=== PATIENT | female | born 1945 | race Caucasian/White ===

== ENCOUNTER 2018-12-28 10:39 | Outpatient (REF) | payer MEDICARE, SELFPAY ==
[2018-12-28 13:52] LABS: HCT 41.3 % (36.0-46.0); HGB 14.5 g/dL (12.0-15.5); Mean Corp. HGB Concentration 35.1 g/dL (32.0-36.0); Mean Corpuscular Hemoglobin 35.9 pg (27.0-33.0); Mean Corpuscular Volume 102.2 fL (80-95); Mean Platelet Volume 10.1 fL (8.0-11.0); Platelet Count 176 x1000/uL (130-400); RBC 4.04 m/cumm (4.00-5.20); RBC Distribution Width 12.3 % (11.7-14.6); White Blood Cell Count 3.83 k/cumm (4.4-10.8)
[2018-12-29 12:33] LABS: Lyme Ab w Rflx to Lyme Confirm Negative
[2018-12-30 21:52] LABS: Anaplasma phagocytophilum Negative (Negative); B. miyamotoi PCR Negative (Negative); Babesia divergens/MO-1 Negative (Negative); Babesia duncani Negative (Negative); Babesia microti Negative (Negative); Ehrlichia chaffeensis Negative (Negative); Ehrlichia ewingii/canis Negative (Negative); Ehrlichia muris eauclairensis Negative (Negative)
== END 2018-12-28 10:59 ==
LOC: NCHCN 10:39
PROVIDERS: PCP Nurse Practitioner Family; Visit Provider Family Medicine
DX: R50.9 Fever, unspecified (principal); W57.XXXA Bitten or stung by nonvenomous insect and other nonvenomous arthropods, initial encounter; T14.8XXA Other injury of unspecified body region, initial encounter
CPT/HCPCS: 85027; 87798; 86618

== ENCOUNTER 2019-02-01 09:08 | Outpatient (REF) | payer MEDICARE, SELFPAY ==
[2019-02-01 14:47] LABS: HCT 39.8 % (36.0-46.0); HGB 13.5 g/dL (12.0-15.5); Mean Corp. HGB Concentration 33.9 g/dL (32.0-36.0); Mean Corpuscular Hemoglobin 35.7 pg (27.0-33.0); Mean Corpuscular Volume 105.3 fL (80-95); Mean Platelet Volume 9.5 fL (8.0-11.0); Platelet Count 406 x1000/uL (130-400); RBC 3.78 m/cumm (4.00-5.20); RBC Distribution Width 13.3 % (11.7-14.6); White Blood Cell Count 4.79 k/cumm (4.4-10.8)
[2019-02-01 15:32] LABS: Vitamin B12 294 pg/mL (193-986)
[2019-02-02 12:16] LABS: Lyme Ab w Rflx to Lyme Confirm Positive
[2019-02-03 17:49] LABS: Anaplasma phagocytophilum Negative (Negative); B. miyamotoi PCR Negative (Negative); Babesia divergens/MO-1 Negative (Negative); Babesia duncani Negative (Negative); Babesia microti Negative (Negative); Ehrlichia chaffeensis Negative (Negative); Ehrlichia ewingii/canis Negative (Negative); Ehrlichia muris eauclairensis Negative (Negative)
[2019-02-04 13:06] LABS: IgG Band(s) SEE COMMENTS kDa; IgG Immunoblot Negative; IgM Immunoblot Positive; Immunoblot Interpretation SEE COMMENTS
== END 2019-02-01 09:28 ==
LOC: NCHCN 09:08
PROVIDERS: PCP Family Medicine; Visit Provider Family Medicine
DX: R53.83 Other fatigue (principal); A69.20 Lyme disease, unspecified
CPT/HCPCS: 85027; 86617; 87798; 82607; 82746; 86618

== ENCOUNTER 2020-07-18 15:00 | Outpatient (REF) | payer MEDICARE, SELFPAY ==
[2020-07-18 14:56] LABS: ALT 38 U/L (14-59); AST 38 U/L (15-37); Albumin 4.1 g/dL (3.4-5.0); Alkaline Phosphatase 52 U/L (46-116); Anion Gap 12.3 mmol/L (3-11); BUN 9 mg/dL (7-18); Bilirubin, Total 0.4 mg/dL (0.2-1.0); CO2 25.7 mmol/L (21.0-32.0); CREATININE 0.7 mg/dL (0.55-1.02); Calculated LDL 107 mg/dL (<100); Chloride 104 mmol/L (98-107); Cholesterol 242 mg/dL (<200); Glucose 85 mg/dL (74-106); HDL Cholesterol 125 mg/dL (40-60); Potassium 4.4 mmol/L (3.5-5.1); Sodium 142 mmol/L (136-145); Total Protein 7.2 g/dL (6.4-8.2); Triglyceride 52 mg/dL (<150); Vitamin B12 272 pg/mL (193-986)
== END 2020-07-18 15:01 | disposition home or self-care (01) ==
LOC: NCHCN 15:00
PROVIDERS: PCP Family Medicine; Visit Provider Nurse Practitioner
DX: E53.8 Deficiency of other specified B group vitamins (principal); E78.5 Hyperlipidemia, unspecified; I10 Essential (primary) hypertension
CPT/HCPCS: 80053; 80061; 82607

== ENCOUNTER 2020-08-01 16:20 | Outpatient (REF) | payer MEDICARE, SELFPAY ==
[2020-08-01 15:23] LABS: Abs Immature Grans 0.02 10^3/uL (0.0-0.06); Absolute Basophil Count 0.07 10^3/uL (0.0-0.2); Absolute Lymphocyte Count 1.08 10^3/uL (1.2-3.4); Absolute Monocyte Count 0.53 10^3/uL (0.1-0.8); Absolute Neutrophil Count 3.15 10^3/uL (1.2-6.7); Basophils % 1.4; HCT 37.6 % (36.0-46.0); HGB 12.8 g/dL (11.2-15.7); Immature Grans % 0.4; Lymphocytes % 21.8; MCV 105.6 fL (80-95); MPV 9.2 fL (8.0-11.0); Monocytes % 10.7; Neutrophils % 63.7; Nucleated RBC 0 %; Platelet Count 273 10^3/uL (130-400); RBC 3.56 10^6/uL (3.93-5.22); RDW 12.6 % (11.7-14.6); RDW-SD 49.3 fL; WBC 4.95 10^3/uL (4.4-10.8)
[2020-08-01 15:46] LABS: Macrocytosis 1+
== END 2020-08-01 16:21 | disposition home or self-care (01) ==
LOC: NCHCN 16:20
PROVIDERS: PCP Family Medicine; Visit Provider Nurse Practitioner
DX: E53.8 Deficiency of other specified B group vitamins (principal)
CPT/HCPCS: 85025

== ENCOUNTER 2021-01-20 10:23 | Outpatient (REF) | payer MEDICARE, SELFPAY | END 2021-01-20 10:24 | disposition home or self-care (01) | LOC: LBN 10:23 | PROVIDERS: PCP Family Medicine; Visit Provider Nurse Practitioner Family | DX: R31.9 Hematuria, unspecified (principal) | CPT/HCPCS: 87077; 87086; 87186 ==

== ENCOUNTER → 2021-12-08 12:33 | Outpatient (CLI) | payer MEDICARE, SELFPAY ==
--- NOTE | 2021-12-08 | DI.RAD_ITS ---
Exam(s) XR ANKLE RT COMPLETE EXAM: XR ANKLE RT COMPLETE CLINICAL HISTORY: PAIN IN RIGHT ANKLE M25.571. TECHNIQUE: 2D digital imaging was performed. COMPARISON: No exams were available for comparison FINDINGS: 3 views No evidence of fracture nor widening of the ankle mortise. Talar dome unremarkable. Bone density is age-appropriate. No obvious degenerative changes in the ankle and subtalar joints. No osseous tars al coalition. Base of the 5th metatarsal appears unremarkable. No loose intra-articular bodies evident. IMPRESSION: No significant radiographic findings in the right ankle. DATA REPOSITORY: RADIATION DOSE DELIVERED:
== END ==
PROVIDERS: PCP Family Medicine; Visit Provider Nurse Practitioner Family
DX: M25.571 Pain in right ankle and joints of right foot (principal)
CPT/HCPCS: 73610

== ENCOUNTER 2021-12-26 16:46 | Outpatient (REF) | payer MEDICARE, SELFPAY ==
[2021-12-26 16:42] LABS: Abs Immature Grans 0.01 10^3/uL (0.0-0.06); Absolute Basophil Count 0.08 10^3/uL (0.0-0.2); Absolute Eosinophil Count 0.13 10^3/uL (0.0-0.7); Absolute Lymphocyte Count 1.25 10^3/uL (1.2-3.4); Absolute Monocyte Count 0.58 10^3/uL (0.1-0.8); Absolute Neutrophil Count 4.25 10^3/uL (1.2-6.7); Basophils % 1.3; Eosinophils % 2.1; HCT 38.8 % (36.0-46.0); HGB 13.4 g/dL (11.2-15.7); Immature Grans % 0.2; Lymphocytes % 19.8; MCH 36.5 pg (27.0-33.0); MCHC 34.5 % (32.0-36.0); MCV 106 fL (80-95); MPV 9.9 fL (8.0-11.0); Monocytes % 9.2; Neutrophils % 67.4; Platelet Count 370 10^3/uL (130-400); RBC 3.67 10^6/uL (3.93-5.22); RDW 12.7 % (11.7-14.6); RDW-SD 49.8 fL
[2021-12-26 16:46] LABS: ESR 25 mm/hr (0-30)
[2021-12-26 16:56] LABS: ALT 30 U/L (14-59); AST 25 U/L (15-37); Albumin 4.2 g/dL (3.4-5.0); Alkaline Phosphatase 68 U/L (46-116); Anion Gap 12.1 mmol/L (3-11); BUN 16 mg/dL (7-18); Bilirubin, Total 0.4 mg/dL (0.2-1.0); C-Reactive Protein 0.23 mg/dL (0.0-0.3); CO2 25.9 mmol/L (21.0-32.0); CREATININE 0.7 mg/dL (0.55-1.02); Calcium 9.5 mg/dL (8.5-10.1); Chloride 106 mmol/L (98-107); Glucose 92 mg/dL (74-106); Potassium 4.1 mmol/L (3.5-5.1); Sodium 144 mmol/L (136-145); Total Protein 7.6 g/dL (6.4-8.2)
== END 2021-12-26 16:47 | disposition home or self-care (01) ==
LOC: LBN 16:46
PROVIDERS: PCP Family Medicine; Visit Provider Physician Assistant Medical
DX: M25.571 Pain in right ankle and joints of right foot (principal); M25.471 Effusion, right ankle
CPT/HCPCS: 80053; 85652; 85025; 86140

== ENCOUNTER → 2021-12-31 14:12 | Outpatient (BNVA) | payer MEDICARE, SELFPAY | PROVIDERS: PCP Nurse Practitioner Family; Referring Provider Nurse Practitioner Family; Visit Provider Student in an Organized Health Care Education/Training Program | DX: M25.571 Pain in right ankle and joints of right foot (principal); R60.0 Localized edema | CPT/HCPCS: 99203; 99204 ==

== ENCOUNTER → 2022-01-01 00:56 | Outpatient (CLI) | payer MEDICARE, SELFPAY ==
--- NOTE | 2022-01-01 07:15 | DI.US_ITS ---
Exam(s) US LOWER EXTREMITY VENOUS RT EXAM: US LOWER EXTREMITY VENOUS RT CLINICAL HISTORY: RT LOWER LEG SWELLING, PEDAL EDEMA, R60.9 TECHNIQUE: Grayscale, color, and doppler imaging of the deep venous system of the right lower extrem ity was performed. FINDINGS: There is no evidence of intraluminal thrombus and there is normal compression and augmentation demons trated within the common femoral vein, femoral vein, and popliteal vein. In the ipsilateral calf the interrogated veins also exhibit normal compression/ augmentation properti es. The ipsilateral saphenofemoral junction is patent. IMPRESSION: 1. No evidence of DVT in the right lower extremity. DATA REPOSITORY:
== END ==
PROVIDERS: PCP Nurse Practitioner Family; Visit Provider Student in an Organized Health Care Education/Training Program
DX: R60.0 Localized edema (principal)
CPT/HCPCS: 85652; 86200; 86617; 87798; 85025; 86038; 86140; 86431; 86618; 93971

== ENCOUNTER 2022-01-01 01:12 | Outpatient (CLI) | payer MEDICARE, SELFPAY ==
[2022-01-01 10:06] LABS: Abs Immature Grans 0.01 10^3/uL (0.0-0.06); Absolute Basophil Count 0.07 10^3/uL (0.0-0.2); Absolute Eosinophil Count 0.21 10^3/uL (0.0-0.7); Absolute Lymphocyte Count 1.01 10^3/uL (1.2-3.4); Absolute Monocyte Count 0.56 10^3/uL (0.1-0.8); Absolute Neutrophil Count 3.62 10^3/uL (1.2-6.7); Basophils % 1.3; Eosinophils % 3.8; HCT 38.8 % (36.0-46.0); HGB 13.5 g/dL (11.2-15.7); Immature Grans % 0.2; Lymphocytes % 18.4; MCHC 34.8 % (32.0-36.0); MCV 104 fL (80-95); Monocytes % 10.2; Neutrophils % 66.1; Platelet Count 333 10^3/uL (130-400); RBC 3.75 10^6/uL (3.93-5.22); RDW 12.7 % (11.7-14.6); RDW-SD 48.4 fL; WBC 5.48 10^3/uL (4.4-10.8)
[2022-01-01 10:10] LABS: ESR 17 mm/hr (0-30)
[2022-01-01 10:34] LABS: C-Reactive Protein 0.07 mg/dL (0.0-0.3)
[2022-01-01 18:17] LABS: Rheumatoid Factor <8.6 IU/mL (<12.0)
[2022-01-02 10:40] LABS: Cyclic Citrullinated Peptide <2.5 U/mL (<5.0)
[2022-01-02 12:25] LABS: Lyme Ab w Rflx to Lyme Confirm Positive (Negative)
[2022-01-04 13:27] LABS: Anaplasma phagocytophilum Negative (Negative); B. miyamotoi PCR Negative (Negative); Babesia divergens/MO-1 Negative (Negative); Babesia duncani Negative (Negative); Babesia microti Negative (Negative); Ehrlichia chaffeensis Negative (Negative); Ehrlichia ewingii/canis Negative (Negative); Ehrlichia muris eauclairensis Negative (Negative)
[2022-01-05 15:39] LABS: ANA Interpretation Positive (Negative); ANA Titer Pattern 1:160 Homogeneous
[2022-01-05 16:08] LABS: Lyme IgG Ab Positive (Negative); Lyme IgM Ab Negative (Negative)
== END 2022-01-01 01:13 | disposition home or self-care (01) ==
LOC: LBO 01:14
PROVIDERS: PCP Nurse Practitioner Family; Visit Provider Student in an Organized Health Care Education/Training Program
DX: R60.0 Localized edema (principal); M25.571 Pain in right ankle and joints of right foot
CPT/HCPCS: 85652; 86200; 86617; 87798; 85025; 86038; 86140; 86431; 86618

== ENCOUNTER 2023-03-31 12:02 | Outpatient (REF) | payer MEDICARE, SELFPAY ==
[2023-03-31 14:42] LABS: Bacteria Rare HPF (Negative); C & S Indicated? C&S Done As Ordered; Casts Negative LPF (Negative); Crystals Negative HPF (Negative); Epithelial Cells Rare HPF (Negative); Mucus Trace (Negative); RBC 0-2 HPF (0-2); WBC >50 HPF (0-5)
== END 2023-03-31 12:03 | disposition home or self-care (01) ==
LOC: LBN 12:02
PROVIDERS: PCP Nurse Practitioner Family; Visit Provider Physician Assistant Medical
DX: R30.0 Dysuria (principal)
CPT/HCPCS: 87077; 81015; 87086; 87186

== ENCOUNTER 2023-04-15 14:00 | Outpatient (REF) | payer MEDICARE, SELFPAY ==
[2023-04-15 15:29] LABS: ALT 32 U/L (14-59); AST 29 U/L (15-37); Albumin 4.3 g/dL (3.4-5.0); Alkaline Phosphatase 63 U/L (46-116); Anion Gap 9.6 mmol/L (3-11); BUN 11 mg/dL (7-18); Bilirubin, Total 0.4 mg/dL (0.2-1.0); CO2 27.4 mmol/L (21.0-32.0); CREATININE 0.9 mg/dL (0.55-1.02); Chloride 101 mmol/L (98-107); Estimated GFR 65.84 (mL/min/1.73m2); Glucose 136 mg/dL (74-106); Potassium 4.4 mmol/L (3.5-5.1); Sodium 138 mmol/L (136-145); Total Protein 8.2 g/dL (6.4-8.2)
== END 2023-04-15 14:01 | disposition home or self-care (01) ==
LOC: NCHCN 14:00
PROVIDERS: PCP Nurse Practitioner Family; Visit Provider Nurse Practitioner Family
DX: I10 Essential (primary) hypertension (principal)
CPT/HCPCS: 80053

== ENCOUNTER → 2023-12-31 11:20 | Outpatient (CLI) | payer MEDICARE, SELFPAY ==
--- NOTE | 2023-12-31 11:16 | DI.RAD_ITS ---
Exam(s) XR FOOT LT COMPLETE EXAM: XR FOOT LT COMPLETE CLINICAL HISTORY: PAIN LEFT FOOT M79.672 INVERSION INJURY 8 DAYS AGO. TECHNIQUE: 2D digital imaging was performed. COMPARISON: No exams were available for comparison FINDINGS: There is a single vertically orientated screw at the proximal aspect of the great toe metatarsal-heal ed osteotomy site and there has been shaving of the head of the 1st metatarsal medial aspect related to bunion repair. There is healed fracture deformity at the mid level of the proximal phalanx of the 3rd-middle toe. T here is also a fracture at the base of the proximal phalanx of the 4th toe which is probably subacute . Base of the 5th metatarsal is intact. Tarsometatarsal joints appear intact and there is no diasta sis of the Lisfranc joint. Soft tissue swelling noted over the dorsal aspect of the metatarsals but no acute metatarsal fractures evident. Some narrowing of the 2nd metatarsophalangeal joint is noted. IMPRESSION: Fracture at the proximal aspect of the proximal phalanx of the 4th toe, possibly not acute. Healed f racture midshaft level the proximal phalanx of the adjacent 3rd toe. Dorsal soft tissue swelling over the metatarsals but no acute metatarsal fractures evident. DATA REPOSITORY: RADIATION DOSE DELIVERED:
--- NOTE | 2023-12-31 11:16 | DI.RAD_ITS ---
Exam(s) XR ANKLE LT COMPLETE EXAM: XR ANKLE LT COMPLETE CLINICAL HISTORY: PAIN LEFT ANKLE M25.572 INVERSION INJURY 8 DAYS AGO. TECHNIQUE: 2D digital imaging was performed. COMPARISON: CR XR ANKLE RT COMPLETE from 12/08/2021 FINDINGS: 3 views No evidence of acute fracture of the malleoli nor widening of the ankle mortise. There is, however, slight irregularity at the mid aspect of the talar dome noted. No obvious osteochondral defect nor d egenerative subarticular cyst at this level. No obvious degenerative changes in the ankle and subtal ar joints. IMPRESSION: Subtle abnormality at the talar dome level. Given trauma history here cannot exclude subtle cortical injury/fracture at this level. Further study with CT or MRI can be performed. DATA REPOSITORY: RADIATION DOSE DELIVERED:
--- OUTSIDE RECORDS SUMMARY | 2023-12-31 11:37 | XMS_ITS | Encounter Summary ---
Author Organization [facility] Address [address] [place] [address] Care Team Providers Care Data Center Consultant Name Role Phone Wilton Pyle MD Primary Care Provider [phone] Encounter Details Date Type Department Care Team (Late st Contact Info) Description 01/01/2022 Lab Requisition [facility] Pathology & Laboratory Medicine - [facility] [address], [place] [id number] Outr Resulting Lab, Provider Social History Tobacco Use Types Packs/Day Years Used Date Smoking Tobacco: Never Assessed Sex and Gender Information Value Date Recorded Sex Assigned at Not on file Gender Identity Not on file Sexual Orientation Not on file documented as of this encounter Plan of Treatment Not on file documented as of this encounter Procedures Procedure Name Priority Date/Time Associated Diagnosis Comments LYME ANTIBODY CONFIRMATION Today 01/01/2022 9:44 EDT HOLD SST Today 01/01/2022 9:44 EDT HOLD SST Today 01/01/2022 9:44 EDT HOLD SST Today 01/01/2022 9:44 EDT CCP ANTIBODIES Today 01/01/2022 9:44 EDT LYME AB Today 01/01/2022 9:44 EDT RHEUMATOID FACTOR Today 01/01/2022 9:4 4 EDT ANTI NUCLEAR AB (JENNA), IFA Today 01/01/2022 9:44 EDT documented in this encounter Results * (ABNORMAL) LYME ANTIBODY CONFIRMATION (01/01/2022 9:44 EDT) Lyme IgG Antibody Positive(A) Negative 2021 16:03 EDT [facility] Comment:Specific anti-Borrel ia burgdorfei IgG antibodies are detected. Lyme IgM Antibody Negative Negative 022 16:03 EDT [facility] Comment:Specific anti-Borrel ia burgdorfei IgM antibodies are not detected. This does not exclude the possibility of B. burgdorferi infection. If exposure to B. burgdorferi is suspected, a second sample should be collected and tested 2-4 weeks later. Lyme Antibody Confirmation Interpretation See Comment 01/05/2022 16:03 EDT [facility] Comment:Indicative of B. bur gdorferi infection at some time in the past. Blood VENOUS BLOOD / Unknown 01/01/2022 9:44 EDT 01/01/2022 17:40 EDT Provider Outr Resulting Lab IMMUNOLOGY A ND SEROLOGY ORDERABLES Performing Organization Address [facility]/ZIP Co de Phone Number [facility] [address] [place] [address] * HOLD SST (01/01/2022 9:44 EDT) Hold Hold 01/01/2022 18:46 EDT [facility] Blood VENOUS BLOOD / Unknown 01/01/2022 9:44 EDT 01/01/2022 17:43 EDT Provider Outr Resulting Lab LAB INFO SER VICE AND SUPPORT & PHONE RESULT Performing Organization Address [facility]/ZIP Co de Phone Number [facility] [address] [place] [address] * HOLD SST (01/01/2022 9:44 EDT) Hold Hold 01/01/2022 18:46 EDT [facility] Blood VENOUS BLOOD / Unknown 01/01/2022 9:44 EDT 01/01/2022 17:43 EDT Provider Outr Resulting Lab LAB INFO SER VICE AND SUPPORT & PHONE RESULT Performing Organization Address City/[facility] Co de Phone Number [facility] [address] [place] [address] * HOLD SST (01/01/2022 9:44 EDT) Hold Hold 01/01/2022 18:46 EDT [facility] Blood VENOUS BLOOD / Unknown 01/01/2022 9:44 EDT 01/01/2022 17:43 EDT Provider Outr Resulting Lab LAB INFO SER VICE AND SUPPORT & PHONE RESULT Performing Organization Address [facility] de Phone Number [facility] [address] [place] [address] * (ABNORMAL) LYME AB (01/01/2022 9:44 EDT) [facility] Lyme Ab Positive( A) Negative 01/02/2022 12:21 EDT [facility] Comment: Lyme confirmation added by reflex. The [employer] Lyme Liaison Lyme Total Antibody Plus assay contains antigens from Borrelia burgdorferi, Borrelia garinii, and Borelia afzelli. Results from the second-step confirmation tests that detect only B. burgdorferi specific antigens should be interpreted with caution. Blood VENOUS BLOOD / Unknown 01/01/2022 9:44 EDT 01/01/2022 17:40 EDT Provider Outr Resulting Lab IMMUNOLOGY A ND SEROLOGY ORDERABLES Performing Organization Address [facility] Co de Phone Number [facility] [address] [place] [address] * RHEUMATOID FACTOR (01/01/2022 9:44 EDT) [facility] Rheumatoid Factor <8.6 <12.0 IU/mL 01/01/2022 18:09 EDT [facility] Blood VENOUS BLOOD / Unknown 01/01/2022 9:44 EDT 01/01/2022 17:40 EDT Provider Outr Resulting Lab CHEMISTRY & BLOOD GAS ORDERABLES Performing Organization Address [facility] de Phone Number [facility] [address] [place] [address] * (ABNORMAL) ANTI NUCLEAR AB (JENNA), IFA (01/01/2022 9:44 EDT) JENNA Interpretation Positive(A) Negative 01/05/2022 15:34 EDT [facility] Comment: For titers greater than or equal to 1:160 (except the centromere and nucleolar patterns) it is recommended that specific follow-up autoantibody testing ??(such as for dsDNA and Extractable Nuclear Antigens) be performed on all diffuse and/or speckled patterns NOTE: For add-on testing dsDNA is stable for 7 days refrigerated while Extractable Nuclear Antigens are only stable for 48 hours refrigerated. JENNA Titer and Pattern 1 1:160 Homogeneous 01/05/2022 15:34 EDT [facility] Blood VENOUS BLOOD / Unknown 01/01/2022 9:44 EDT 01/01/2022 17:40 EDT Narrative [facility] - 01/05/2022 15:34 EDT Results were obtained with the INOVA NOVA Lite HEp-2 EJNNA Kit by indirect immunofluorescence. Provider Outr Resulting Lab IMMUNOLOGY A ND SEROLOGY ORDERABLES Performing Organization Address [facility] de Phone Number [facility] [address] [place] [id number] * CCP ANTIBODIES (01/01/2022 9:44 EDT) CCP Antibodies <2.5 <5.0 U/mL 01/02/2022 10:36 EDT [facility] Blood VENOUS BLOOD / Unknown 01/01/2022 9:44 EDT 01/01/2022 17:40 EDT Provider Outr Resulting Lab IMMUNOLOGY A ND SEROLOGY ORDERABLES Performing Organization Address [facility] Co de Phone Number [facility] [address] [place] [address] documented in this encounter Visit Diagnoses Not on filedocumented in this encounter Care Teams Data Center Consultant Relationship Specialty Start Date End Date Wilton Pyle MD [address] [place] [id number] PCP - General 10/25/12 documented as of this encounter
--- OUTSIDE RECORDS SUMMARY | 2023-12-31 11:37 | XMS_ITS | Encounter Summary ---
Author Organization [facility] Address [address] [place] [address] Care Team Providers Care Chief Design Branch Name Role Phone Unknown, Provider Primary Care Provider [phone] Lisa Foster MD Primary Care Provider [phone] Encounter Details Date Type Department Care Team (Late st Contact Info) Description 10/24/2012 Results Only [facility] Laboratory Services - [facility] [address] [place], [place] [id number] Hiral Schaffer MD [address] [place], [place] [id number] Social History Tobacco Use Types Packs/Day Years Used Date Smoking Tobacco: Never Assessed Sex and Gender Information Value Date Recorded Sex Assigned at Not on file Gender Identity Not on file Sexual Orientation Not on file documented as of this encounter Plan of Treatment Not on file documented as of this encounter Procedures Procedure Name Priority Date/Time Associated Diagnosis Comments SURGICAL PATHOLOGY Routine 10/24/2012 9:26 EDT documented in this encounter Results * SURGICAL PATHOLOGY (10/24/2012 9:26 EDT) Pathology Report: SURGICAL PATHOLOGY REPORT Reports generated via electronic interface contain original data; however they are lacking the format of the original report. Caution should be taken when reading/interpreting unformatted reports. Name: ? MIGEL HAWK ? Accession #: ? [id number] ? : ? 1945 (Age: 67) ??F ? Collect Date: ? 10/24/2012 ? Location: ? [facility] ? Receive Date: ? 10/24/2012 ? Provider: HIRAL SCHAFFER MD Copy to: LISA FOSTER MD ? Final Pathologic Diagnosis: ? Vocal cords, right, nodule, biopsy: 1. ?Ductal cyst, benign. 2. ? Subepithelial stromal myxoid degenerative change. 3. ? Small portion of benign seromucous gland. ?? Comment: ? This case has been reviewed at the intradepartmental consultation conference. ??(Dr. Pemberton)/[facility] Document reviewed and electronically signed by: Daina Pemberton MD Report ??Date: 10/26/2012 17:16 By the signature above, the attending physician certifies that he/she has personally conducted a gross and/or microscopic examination of the described specimens and rendered or confirmed the above diagnosis. Specimen(s) Received: ? Bx right vocal cord Clinical History: ? Right vocal cord nodule/? cyst Gross Description: ? Received in formalin labelled Migel Hawk and bx right vocal cord are two light aguero biopsies measuring 0.3 x 0.2 x 0.2 cm and 0.5 x 0.2 x 0.2 cm. The specimens are submitted intact as block (1). (Lindsay Small)/pamella End of Report [facility] 10/24/2012 9:26 EDT 10/24/2012 9:26 EDT Hiral Schaffer MD PATHOLOGY ORDERABLES [facility] [address] [place] [address] documented in this encounter Visit Diagnoses Not on filedocumented in this encounter Care Teams Chief Design Branch Relationship Specialty Start Date End Date Unknown, Provider, PCP - General 10/24/12 10/24/12 Lisa Foster MD [address] [place] [phone] PCP - General 10/25/12 documented as of this encounter
--- OUTSIDE RECORDS SUMMARY | 2023-12-31 11:37 | XMS_ITS | Clinical Summary ---
Author Organization [facility] Address [address] [place] [address] Care Team Providers Care Poem Writer Name Role Phone Wilton Pyle MD Primary Care Provider [phone] Social History Tobacco Use Types Packs/Day Years Used Date Smoking Tobacco: Never Assessed Sex and Gender Information Value Date Recorded Sex Assigned at Not on file Gender Identity Not on file Sexual Orientation Not on file Plan of Treatment Health Maintenance Due Date Last Done Comments Hepatitis C Screen 1945 RSV Immunization ( o r 60+ Years) (1 - 1-dose 60+ series) 2006 Fall Risk Screening 2011 COVID-19 Vaccine ( season) 2023 Care Teams Poem Writer Relationship Specialty Start Date End Date Wilton Pyle MD [address] [place] [address] PCP - General 10/25/12
--- OUTSIDE RECORDS SUMMARY | 2023-12-31 11:37 | XMS_ITS | Encounter Summary ---
Author Organization [facility] Address [address] [place] [address] Care Team Providers Care Elevator Repairer Apprentice Name Role Phone Unavailable Primary Care Provider Unavailabl e Encounter Details Date Type Department Care Team (Late st Contact Info) Description 11/06/2009 Results Only [facility] Laboratory Services - [facility] ([facility] [address] [place] [address] Gail Chio MD [address] [place] [address] [place] [address] Social History Tobacco Use Types Packs/Day Years Used Date Smoking Tobacco: Never Assessed Sex and Gender Information Value Date Recorded Sex Assigned at Not on file Gender Identity Not on file Sexual Orientation Not on file documented as of this encounter Plan of Treatment Not on file documented as of this encounter Procedures Procedure Name Priority Date/Time Associated Diagnosis Comments CYTOPATHOLOGY Routine 11/06/2009 0:00 EDT documented in this encounter Results * CYTOPATHOLOGY (11/06/2009 0:00 EDT) Pathology Report: CYTOPATHOLOGY REPORT ? Reports generated via electronic interface contain original data; ? however they are lacking the format of the original report. ? Caution should be taken when reading/interpreti ng unformatted reports. ? Name: ? MIGEL HAWK ? Accession #: ? [id number] ? : ? 1945 (Age: 64) ??F ?Collect Date: ? 11/06/2009 ? Location: ? [facility] ? Receive Date: ? 11/07/2009 ? Provider: ?GAIL CHOI MD ? Copy to: ? Specimen/Source: ?Pap Test, Cervix/Endocervix, ThinPrep Imaging System ? with manual evaluation ? Last Menstrual Period: ? 2006 ? Other: ? HPVA - HPV testing requested if ASC-US on the current ThinPrep Pap test. ? SPECIMEN ADEQUACY ? Satisfactory for Evaluation ? - transformation zone component absent ? GENERAL CATEGORIZATION ? Negative for Intraepithelial Lesion or Malignancy ? Document reviewed and electronically signed by: ? Michelle Justin, CT(ASCP) ? Report Date: ??11/12/2009 10:22 ? End of Report ? [facility] 11/06/2009 11/07/2009 Gail Choi MD PATHOLOGY ORDERABLES [facility] [address] [place] [address] documented in this encounter Visit Diagnoses Not on filedocumented in this encounter
--- OUTSIDE RECORDS SUMMARY | 2023-12-31 11:37 | XMS_ITS | Referral Summary ---
Author Organization [facility] Address [address] [place] [address] Care Team Providers Care Poultry Farmer Name Role Phone Wilton Pyle MD Primary Care Provider [phone] Social History Tobacco Use Types Packs/Day Years Used Date Smoking Tobacco: Never Assessed Sex and Gender Information Value Date Recorded Sex Assigned at Not on file Gender Identity Not on file Sexual Orientation Not on file Plan of Treatment Not on file Care Teams Poultry Farmer Relationship Specialty Start Date End Date Wilotn Pyle MD [address] [place] [address] PCP - General 10/25/12
== END ==
PROVIDERS: Visit Provider Nurse Practitioner Family
DX: M25.572 Pain in left ankle and joints of left foot (principal); S92.515A Nondisplaced fracture of proximal phalanx of left lesser toe(s), initial encounter for closed fracture
CPT/HCPCS: 73610; 73630

== ENCOUNTER → 2024-01-06 14:54 | Outpatient (BNVA) | payer MEDICARE, SELFPAY | PROVIDERS: PCP Nurse Practitioner Family; Referring Provider Nurse Practitioner Family; Visit Provider Podiatrist | DX: S93.401A Sprain of unspecified ligament of right ankle, initial encounter (principal); M25.571 Pain in right ankle and joints of right foot; W18.42XA Slipping, tripping and stumbling without falling due to stepping into hole or opening, initial encounter | CPT/HCPCS: 29580; 99213; 29850 ==

== ENCOUNTER 2024-04-03 20:30 | Outpatient (REF) | payer MEDICARE, SELFPAY ==
[2024-04-03 15:34] LABS: Abs Immature Grans 0.01 10^3/uL (0.0-0.06); Absolute Basophil Count 0.05 10^3/uL (0.0-0.2); Absolute Lymphocyte Count 1.26 10^3/uL (1.2-3.4); Absolute Monocyte Count 0.52 10^3/uL (0.1-0.8); Absolute Neutrophil Count 3.58 10^3/uL (1.2-6.7); Basophils % 0.9 %; Eosinophils % 1.8 %; HCT 39.8 % (36.0-46.0); HGB 13.8 g/dL (11.2-15.7); Immature Grans % 0.2 %; Lymphocytes % 22.8 %; MCH 36.5 pg (27.0-33.0); MCHC 34.7 % (32.0-36.0); MCV 105 fL (80-95); MPV 9.9 fL (8.0-11.0); Monocytes % 9.4 %; Neutrophils % 64.9 %; Platelet Count 287 10^3/uL (130-400); RBC 3.78 10^6/uL (3.93-5.22); RDW 12.6 % (11.7-14.6); RDW-SD 49.5 fL; WBC 5.52 10^3/uL (4.4-10.8)
[2024-04-03 15:47] LABS: ALT 34 U/L (14-59); AST 27 U/L (15-37); Albumin 4.1 g/dL (3.4-5.0); Alkaline Phosphatase 66 U/L (46-116); Anion Gap 10.8 mmol/L (3-11); BUN 11 mg/dL (7-18); Bilirubin, Total 0.56 mg/dL (0.2-1.0); CO2 29.2 mmol/L (21.0-32.0); CREATININE 0.8 mg/dL (0.55-1.02); Calcium 9.8 mg/dL (8.5-10.1); Chloride 105 mmol/L (98-107); Estimated GFR 75.37 (mL/min/1.73m2); Glucose 109 mg/dL (74-106); Potassium 3.8 mmol/L (3.5-5.1); Sodium 145 mmol/L (136-145); Total Protein 7.4 g/dL (6.4-8.2)
[2024-04-03 15:58] LABS: Diff Comment RBC Morph Reviewed; Macrocytosis 1+
[2024-04-04 12:50] LABS: Lyme Ab w Rflx to Lyme Confirm Positive (Negative)
[2024-04-04 14:07] LABS: Lyme IgG Ab Positive (Negative); Lyme IgM Ab Negative (Negative)
[2024-04-05 23:36] LABS: Anaplasma phagocytophilum Negative (Negative); B. miyamotoi PCR Negative (Negative); Babesia divergens/MO-1 Negative (Negative); Babesia duncani Negative (Negative); Babesia microti Negative (Negative); Ehrlichia chaffeensis Negative (Negative); Ehrlichia ewingii/canis Negative (Negative); Ehrlichia muris eauclairensis Negative (Negative)
== END 2024-04-03 20:31 | disposition home or self-care (01) ==
LOC: LBN 20:30
PROVIDERS: PCP Nurse Practitioner Family; Visit Provider Nurse Practitioner Family
DX: W57.XXXA Bitten or stung by nonvenomous insect and other nonvenomous arthropods, initial encounter (principal)
CPT/HCPCS: 80053; 86617; 87798; 85025; 86618

== ENCOUNTER 2024-09-21 01:09 | Outpatient (CLI) | payer MEDICARE, SELFPAY ==
--- NOTE | 2024-09-21 | DI.US_ITS ---
Exam(s) US CAROTID EXAM: US CAROTID CLINICAL HISTORY: Carotid artery occlusion, I65.29; ? of rt-sided blockage on carotid artery. TECHNIQUE: Ultrasound carotids performed using grayscale, color-flow, and spectral Doppler imaging. COMPARISON: No exams were available for comparison FINDINGS: RIGHT CAROTID ARTERY: Plaque: Calcific plaque at bulb and proximal internal and external carotid arteries. Velocity elevation: Velocity elevation in the proximal internal carotid artery corresponding to 50-69 percent stenosis. Elevated velocity also noted in the mid and distal internal carotid arteries as w ell as in the external carotid artery at the origin. LEFT CAROTID ARTERY: Plaque: Cephalic plaque at the common carotid bulb, proximal through mid internal carotid artery as w ell as origin external carotid artery. Velocity elevation: Elevated systolic velocity in the proximal internal carotid artery as well as ext ernal carotid artery consistent with 50-69 percent stenosis. VERTEBRAL ARTERIES: Antegrade flow. Measurements: R Bulb: 121.1cm/s PS / 30.9cm/s ED R CCA: 90.6cm/s PS / 25.3cm/s ED R ECA: 210.8cm/s PS / 26.5cm/s ED R ICA Prox: 235.6cm/s PS / 37cm/s ED R ICA Mid: 223.1cm/s PS / 38.8cm/s ED R ICA Distal: 172.4cm/s PS /43.5cm/s ED R Vert: 98.4cm/s PS / 21.7cm/s ED R SVR: 2.6 R DVR: 1.5 L Bulb: 152.2cm/s PS / 23.7cm/s ED L CCA: 78.3cm/s PS / 21.7cm/s ED L ECA: 223.5cm/s PS / 31.2cm/s ED L ICA Prox: 190.4cm/s PS / 41cm/s ED L ICA Mid: 95.6cm/s PS / 21.6cm/s ED L ICA Distal: 96.1cm/s PS / 31.6cm/s ED L Vert: 89.5cm/s PS / 11.9cm/s ED L SVR: 2.4 L DVR: 1.9 IMPRESSION: Calcific plaque bilaterally in the common carotid bulbs through mid internal carotid arteries with 50 -69 percent stenosis bilaterally at the origins of the internal carotid arteries bilaterally. Criteria for Carotid Stenosis: Normal: ICA PSV <125 cm/s no plaque or intimal thickening is visible. <50% stenosis: ICA PSV <125 cm/s and plaque or intimal thickening is visible. 50-69% stenosis: ICA PSV is 125-250 cm/s and plaque is visible. >70% stenosis to near occlusion: ICA PSV >250 cm/s with visible plaque and luminal narrowing. DATA REPOSITORY:
== END 2024-09-21 01:29 ==
LOC: DI 01:09
PROVIDERS: PCP Nurse Practitioner Family; Visit Provider Nurse Practitioner Family
DX: I65.23 Occlusion and stenosis of bilateral carotid arteries (principal)
CPT/HCPCS: 93880

== ENCOUNTER 2024-10-10 09:49 | Outpatient (RCR) | payer MEDICARE, SELFPAY | END 2024-10-11 23:59 | disposition home or self-care (01) | LOC: CARDOPNVT 09:49 | PROVIDERS: PCP Nurse Practitioner Family; Visit Provider Internal Medicine Cardiovascular Disease | DX: I49.1 Atrial premature depolarization (principal); R00.2 Palpitations | CPT/HCPCS: 93227; 93225 ==

== ENCOUNTER 2024-10-12 10:40 | Outpatient (RCR) | payer MEDICARE, SELFPAY ==
--- NOTE | 2024-10-17 08:32 | HOLT_ITS ---
Date of service: 10/17/24 Time of Service: 08:32 Holter Monitor Report Referring Provider:: Lorena Tyler Indications:: Palpitations Holter Monitor Note: This is a 48-hour Holter monitor. Predominant rhythm was sinus with an average heart rate overall of 95. Minimum was 47, maximum 155. There were very rare premature ventricular contractions. There were very frequent atrial premature beats. There were multiple self- limited atrial runs. The longest of these lasted 15 seconds. Fastest rate was 191. Blocked atrial premature beats were also noted. There was no atrial fibrillation, no high-grade AV block, no pauses greater than 3 seconds. Symptoms were reported. 1 correlated to sinus rhythm, the other to an atrial premature beat
== END 2024-11-11 23:59 | disposition home or self-care (01) ==
LOC: CARDOPNVT 10:40
PROVIDERS: PCP Nurse Practitioner Family; Visit Provider Internal Medicine Cardiovascular Disease
DX: I49.1 Atrial premature depolarization (principal); R00.2 Palpitations
CPT/HCPCS: 93227; 93226

== ENCOUNTER 2024-12-05 14:23 | Outpatient (REF) | payer MEDICARE, SELFPAY | END 2024-12-05 14:24 | disposition home or self-care (01) | LOC: LBN 14:23 | PROVIDERS: PCP Nurse Practitioner Family; Visit Provider Nurse Practitioner Family | DX: N30.01 Acute cystitis with hematuria (principal); R82.89 Other abnormal findings on cytological and histological examination of urine | CPT/HCPCS: 87077; 87086; 87186 ==

== ENCOUNTER 2025-03-05 15:45 | Outpatient (REF) | payer MEDICARE, SELFPAY | END 2025-03-05 15:46 | disposition home or self-care (01) | LOC: NCHCN 15:45 | PROVIDERS: PCP Nurse Practitioner Family | DX: N30.00 Acute cystitis without hematuria (principal) | CPT/HCPCS: 87086 ==

== ENCOUNTER 2025-04-13 16:47 | Outpatient (REF) | payer MEDICARE, SELFPAY ==
[2025-04-13 16:56] LABS: RBC >50 HPF (0-2)
== END 2025-04-13 16:48 | disposition home or self-care (01) ==
LOC: LBN 16:47
PROVIDERS: PCP Nurse Practitioner Family; Visit Provider Physician Assistant Medical
DX: R30.0 Dysuria (principal)
CPT/HCPCS: 81015; 87086